=== PATIENT | male | born 1960 | race Hispanic/Latino ===

== ENCOUNTER 2016-07-22 19:26 | Observation (INO) | payer OTHER ==
[2016-07-22 19:33] VITALS: BMI 29.4
--- NOTE | 2016-07-22 19:51 | EDPD ---
HPI Stroke - General Time Seen by Provider: 07/22/16 19:32 Chief Complaint: Weakness/Neurological Deficit Historian: Patient - History of Present Illness Narrative History of Present Illness (Free Text): 07/22/16 19:47 56 year old male presents to the emergency department with right sided facial numbness since 15:05 today. Patient states he was driving when he felt his lips tingling and right sided facial numbness. He states he was at work later trying to pronounce a difficult name when he began to have experience difficulty with his speech. Patient states the speech and lip tingling have resolved. Patient still reports some numbness on the right side of the face. Denies dizziness, headache, neck pain, chest pain, shortness of breath, or other symptoms. Date:: 07/22/16 Time: 15:05 Onset:: Hours rTPA Inclusion/Exclusion - Refusal of Treatment Patient Refused Treatment: No - Inclusion Criteria for Altepase Patient is 18 years or Older: Yes The Clinical Diagnosis of Ischemic Stroke That is Causing a Potentially Disabling Neurological Deficit: No Time of Onset is Well Established to be Less Than 270 Minute Before Treatment Would Begin: No Risk/Benefit Discussed With Patient/Family Member Present: Yes - Exclusion Criteria for Altepase Uncontrolled Hypertension at Time of Treatment (Systolic BP above 185 or Diastolic BP above 110 mmHg): No Active Internal Bleeding: No Known Bleeding Diathesis Including but Not Limited to: Platelets Below 100,000/ mm,PTT Above 40 sec After Heparin Use, Current Use of Oral Anitcoagulant With INR Greater Than 1.7 or PT Greater Than 15 secs: No Evidence of an Intracranial Hemorrhage: No Evidence of Major Acute Infarct With Signs Greater Than 1/3 MCA Territory: No Suspicion of Subarachnoid Hemorrhage on Pretreatment Evaluation Even if CT Head Negative For Hemorrhage: No - Warning to TPA With Conditions Following Conditions Weighed Against Anticipated Benefit: Yes Condition: Stroke Serevity Too Mild, Rapid Improvement Past Medical History - Provider Review Nursing Documentation Reviewed: Yes - Pulmonary Hx Respiratory Disorders: No - Neurological Hx Neurological Disorder: No - HEENT Hx HEENT Disorder: No - Renal Hx Renal Disorder: No - Endocrine/Metabolic Hx Endocrine Disorders: No - Hematological/Oncological Hx Blood Disorders: No - Integumentary Hx Dermatological Disorder: No - Musculoskeletal/Rheumatological Other/Comment: R KNEE , AND R ANKLE INJURY - Gastrointestinal Hx Gastrointestinal Disorders: No - Genitourinary/Gynecological Hx Genitourinary Disorders: No - Psychiatric Hx Psychophysiologic Disorder: No Hx Substance Use: No Family/Social History - Family/Social History Family History: Non-Contributory - Dr. Daniel Nursing documentation reviewed.: Yes Allergies/Home Meds Allergies/Adverse Reactions: Allergies FISH Allergy (Verified 07/22/16 19:31) SWELLING Home Medications: Home Meds Medication Instructions Recorded Confirmed Aspirin [Ecotrin] 81 mg PO DAILY 07/22/16 07/22/16 Simvastatin [Zocor] 20 mg PO DAILY 07/22/16 07/22/16 Review of Systems - Physician Review All systems were reviewed & negative as marked: Yes - Review of Systems Eyes: absent: Vision Changes ENT: absent: Hearing Changes Respiratory: absent: SOB Cardiovascular: absent: Chest Pain Gastrointestinal: absent: Abdominal Pain Genitourinary Male: absent: Dysuria Musculoskeletal: absent: Neck Pain Skin: absent: Rash Neurological: Speech Changes (resolved), Other (Right sided facial numbness). absent: Headache, Dizziness Endocrine: absent: Diaphoresis Hemo/Lymphatic: absent: Easy Bleeding Psychiatric: absent: Depression ED Stroke Physical Exam Vital Signs Reviewed: Yes Vital Signs Temp Pulse Resp BP Pulse Ox 07/22/16 19:35 98.3 F 98 H 17 153/93 H 96 Temperature: Afebrile Blood Pressure: Hypertensive Pulse: Regular Respiratory Rate: Normal Appearance: Positive for: Well-Appearing, Non-Toxic, Comfortable Pain Distress: None Mental Status: Positive for: Alert and Oriented X 3 - Systems Exam Head: Present: Atraumatic, Normocephalic Pupils: Present: PERRL Extroacular Muscles: Present: EOMI Conjunctiva: Present: Normal Mouth: Present: Moist Mucous Membranes Neck: Present: Normal Range of Motion Respiratory/Chest: Present: Clear to Auscultation, Good Air Exchange. No: Respiratory Distress, Accessory Muscle Use Cardiovascular: Present: Regular Rate and Rhythm, Normal S1, S2. No: Murmurs Abdomen: Present: Normal Bowel Sounds. No: Tenderness, Distention, Peritoneal Signs Back: Present: GCS, CN, SP Upper Extremity: Present: Normal Inspection. No: Cyanosis, Edema Lower Extremity: Present: Normal Inspection. No: Edema Neurologic: Present: GCS=15, CN II-XII Intact, Speech Normal, Motor Func Grossly Intact, Normal Sensory Function Skin: Present: Warm, Dry, Normal Color. No: Rashes Lymphatic: Present: OX3, NI, NC Psychiatric: Present: Alert, Oriented x 3, Normal Insight, Normal Concentration Medical Decision Making ED Course and Treatment: Impression: 56 year old male presents to the emergency department with right sided facial numbness since 15:05 today. Differential Diagnosis included but are not limited to: CVA vs TIA Plan: -- CT Head, EKG, Chest X-ray -- Labs -- Reassess and disposition Progress Notes: CT Head Without Intravenous Contrast FINDINGS: Brain: Areas of decreased attenuation noted within the periventricular and subcortical white matter likely related to chronic microangiopathic ischemic changes given the patient's stated age.Streak artifact limits evaluation of the skull base. No evidence of acute intracranial hemorrhage. Correlate clinically. Ventricles: Unremarkable. No ventriculomegaly. Bones/joints: See above. Soft tissues: Small subcutaneous nodule is noted in the left frontal region. Sinuses: Mucosal thickening of the right maxillary sinus. Mastoid air cells: Unremarkable as visualized. No mastoid effusion. IMPRESSION: Streak artifact limits evaluation of the skull base. No evidence of acute intracranial hemorrhage. CT can miss an acute nonhemorrhagic CVA. It should be noted that acute strokes may be initially radiologically occult on CT. If the patient is having persistent stroke like symptomatology, then MRI may be beneficial. Chest x-ray read by me shows no pneumothorax, no pneumonia, no cardiomegaly, no infiltrates. EKG interpreted by me shows NSR at 92 BPM with LVH, nonspecific ST/T wave changes. 07/22/16 20:[address] Loyd Cooney, neurologist, who is aware and agrees with plan. Pt is not a candidate for tPA due to resolution of symptoms. 07/22/16 22:[address] Hidalgo, who is aware and agrees with plan. Accepts pt in to his service. Pt will go to Telemetry observation for TIA. Pt is no acute distress. Discussed results and hospital observation plan with pt , who is aware and agrees with plan. - Critical Care Critical Care Minutes: 30 minutes - RAD Interpretation Radiology Orders: 07/22/16 19:40 HEAD W/O (CODE STROKE) [CT] Stat CHEST PORTABLE [RAD] Stat - Scribe Statement The provider has reviewed the documentation as recorded by the Yadira Melgoza Provider Scribe Attestation: All medical record entries made by the Scribe were at my direction and personally dictated by me. I have reviewed the chart and agree that the record accurately reflects my personal performance of the history, physical exam, medical decision making, and the department course for this patient. I have also personally directed, reviewed, and agree with the discharge instructions and disposition. NIHSS Scale ([place]) Time Performed: 19:45 - How Severe is the Stoke Baseline Level of Consciousness: 0=Alert LOC to Questions: 0=Both comments correct LOC to commands: 0=Obeys both correctly Best Gaze: 0=Normal Visual: 0=No visual loss Facial: 0=Normal Motor Arm - Left: 0=No drift Motor Arm - Right: 0=No drift Motor Leg - Left: 0=No drift Motor Leg - Right: 0=No drift Limb Ataxia: 0=Absent Sensory: 1=Mild to moderate loss Best Language: 0=No aphasia Dysarthia: 0=Normal articulation Extinction & Inattention (Neglect): 0=Normal, no object Score: 1 Risk Level: Minor Stroke Risk Disposition/Present on Arrival - Present on Arrival Any Indicators Present on Arrival: No History of DVT/PE: No History of Uncontrolled Diabetes: No Urinary Catheter: No History of Decub. Ulcer: No History Surgical Site Infection Following: None - Disposition Have Diagnosis and Disposition been Completed?: Yes Diagnosis: Transient cerebral ischemia Disposition: HOSPITALIZED Disposition Time: 22:50 Condition: GOOD
[2016-07-22 20:07] LABS: ADD MANUAL DIFF? NO
[2016-07-22 20:09] LABS: BASO # 0.03 K/mm3 (0.0-2.0); BASO % 0.3 % (0.0-3.0); EOS # 0.2 (0.0-0.7); EOS % 2.3 % (1.5-5.0); GRAN # 6.62 (1.4-6.5); GRAN % 66.7 % (50.0-68.0); HEMATOCRIT 41.7 % (42.0-52.0); LYMPH # 2.1 (1.2-3.4); LYMPH % 20.9 % (22.0-35.0); MEAN CELL VOLUME 85.8 fL (80.0-105.0); MEAN CORPUSCULAR HEMOGLOBIN 29.8 pg (25.0-35.0); MEAN CORPUSCULAR HGB CONC 34.8 g/dl (31.0-37.0); MEAN PLATELET VOLUME 10.3 fl (7.0-11.0); MONO % 9.8 % (1.0-6.0); PLATELET COUNT 231 10^3/uL (120.0-450.0); RED CELL DISTRIBUTION WIDTH 13.9 % (11.5-14.5); WHITE BLOOD COUNT 9.9 10^3/ul (4.5-11.0)
[2016-07-22 20:20] LABS: ALB/GLOB RATIO 1.4 (1.1-1.8); ALKALINE PHOSPHATASE 49 U/L (38-133); ALT/SGPT 44 U/L (7-56); AST/SGOT 36 U/L (15-59); BILIRUBIN,TOTAL 1.2 mg/dL (0.2-1.3); BLOOD UREA NITROGEN 22 mg/dL (7-21); CALCIUM 9.8 mg/dL (8.4-10.5); CARBON DIOXIDE 25 mmol/L (21-33); CHLORIDE 102 mmol/L (98-107); CHOLESTEROL 193 mg/dL (130-200); GFR AFRICAN-AMERICAN > 60; GLUCOSE,RANDOM 96 mg/dL (70-110); POTASSIUM 3.8 mmol/L (3.6-5.0); SODIUM 139 mmol/L (132-148); TOTAL PROTEIN 7.3 g/dL (5.8-8.3)
[2016-07-22 20:26] LABS: INR 0.99 (0.93-1.08); PARTIAL THROMBOPLASTIN TIME 26.4 Seconds (23.7-30.8)
[2016-07-22 20:32] LABS: TROPONIN I < 0.01 ng/mL
--- NOTE | 2016-07-23 07:49 | RAD ---
HISTORY: code stroke COMPARISON: No prior. FINDINGS: LUNGS: No active pulmonary disease. PLEURA: No significant pleural effusion identified, no pneumothorax apparent. CARDIOVASCULAR: Mild cardiomegaly OSSEOUS STRUCTURES: No significant abnormalities. VISUALIZED UPPER ABDOMEN: Normal. OTHER FINDINGS: EKG leads in place IMPRESSION: No active pulmonary disease. Mild cardiomegaly
--- NOTE | 2016-07-23 09:21 | HP ---
I saw him this morning in his room on telemetry. He has an interesting history. 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 He had some chicken at [employer]. He tried to sleep in the car, went back to work. When he got to the point where he could not remember the name of his boss, he ended up going to the Emergency Room. He saw I think a doctor earlier, but the numbness in his face persisted. He had spoken to his brot her, who is a surgeon in [place], who thought it was a TIA or developing stroke. He came to the [facility] Room. They did a stroke protocol I understand. He had a CAT scan, which is pending. At this time, the face is all resolved. He is feeling better. When he came in, his blood pressure was 185/1 10. He never had that before. PAST MEDICAL HISTORY: Right knee and right ankle injury. ALLERGIES: FISH. He takes a baby aspirin and Zocor. He calls it preventative and did not have high cholesterol he tel ls me. He has never had hypertension. This is the highest it has ever been. He had no vision miranda es, no hearing changes. He had right lip tingling and right face numbness. No shortness of breath, no chest pain, no abdominal pain, no problems urinating, no skin rashes. His speech was also changed from the right-sided facial numbness. He felt his speech could not talk correctly and he could not remember a name, but it resolved. No sweating, no easy bleeding. PHYSICAL EXAMINATION: VITAL SIGNS: He has a 98.3 temp, 98 pulse, 153/93 blood pressure, also 168/110 blood pressure, 96% O 2 sat. HEENT: His head is atraumatic, normocephalic at this time. His extraocular muscles are intact. Pup ils equally reactive to light. Mucous membranes are moist. GENERAL: He is well-appearing, nontoxic, comfortable. He is alert and oriented x 3 at this time. H e feels everything has resolved. NECK: Supple. HEART: Regular rate. LUNGS: Have decreased breath sounds, but clear to auscultation, good exchange. ABDOMEN: Soft, nontender, positive bowel sounds. EXTREMITIES: Have no edema. NEUROLOGIC: GCS is 15. Cranial nerves II-XII grossly intact. He can smile equally right now. Tong ue is midline. SKIN: Warm and dry. PSYCHIATRIC: He is alert and oriented x 3. LYMPHATIC: Thyroid midline. No palpable lymphadenopathy. He comes in with transient ischemic attack, rule out stroke. He had a CAT scan of the head and chest x-ray, which are pending. He had a 139 sodium, potassium 3.8, BUN 22, creatinine 1.3, GFR is 57, sugar is 96, calcium is 9.8, t otal bili is 1.2, AST is 36, ALT is 44, alkaline phosphatase 49. Troponin is less than 0.01. Total protein 7.3, albumin is 4.2, globulin is 3.1. Cholesterol is 193. He is on cholesterol medications. HDL is 38. INR is 0.99. White count is 9.9, hemoglobin 14.5, hematocrit 41.7, platelets of 231. He has a consult for neurology and a consult for cardiology. He has an MRI ordered this morning and we will order carotid Dopplers. I have put him on Norvasc 5 mg for the blood pressure. He is on a f ull aspirin right now. I am hoping since everything has resolved, he will be able to be discharged t his afternoon and hopefully he will be considered a transient ischemic attack with hypertension. We are waiting for neuro and cardio to see. Des Hidalgo DO cc: [id number] TT: 07/23/2016 09:20:50 en
--- NOTE | 2016-07-23 10:13 | CT ---
PROCEDURE: CT HEAD WITHOUT CONTRAST. HISTORY: Code Stroke COMPARISON: None available. TECHNIQUE: Axial computed tomography images were obtained through the head/brain without intravenous contrast. Radiation dose: Total exam DLP = 834 mGy-cm. This CT exam was performed using one or more of the following dose reduction techniques: Automated exposure control, adjustment of the mA and/or kV according to patient size, and/or use of iterative reconstruction technique. FINDINGS: HEMORRHAGE: No intracranial hemorrhage. BRAIN: No mass effect or edema. No atrophy or chronic microvascular ischemic changes. VENTRICLES: Unremarkable. No hydrocephalus. CALVARIUM: Unremarkable. PARANASAL SINUSES: Unremarkable as visualized. No significant inflammatory changes. MASTOID AIR CELLS: Unremarkable as visualized. No inflammatory changes. OTHER FINDINGS: The report concurs with the preliminary [facility] report IMPRESSION: No acute findings
--- NOTE | 2016-07-23 12:24 | CON ---
DATE: 07/23/2016 CHIEF COMPLAINT: Right-sided facial numbness and right-sided lip tingling. HISTORY OF PRESENT ILLNESS: This is a 56-year-old man with history of right knee and right ankle inj ury who present to the hospital because he was dealing with right-sided lip tingling and right-sided facial numbness while driving. He went over and ate something because he had not eaten for 18 hours and thought it would help him. He ate some chicken at [employer]. He tried to sleep in the car. When he went back to work, he got to a point where he could not remember the name of his boss and had cat e difficulty with getting out his words. He said that he had numbness of the right side of face and lip tingling. He had an elevated systolic and diastolic blood pressures in the ER of 180/110; current ly it is 155/98. He has elevated triglycerides of 336 and total cholesterol of 193. Currently, his neuro exam is nonfocal. He denies any further symptoms. PAST MEDICAL HISTORY: History of right knee and right ankle injury. ALLERGIES: FISH. HOME MEDICATIONS: He takes baby aspirin and Zocor. FAMILY HISTORY: Noncontributory. SOCIAL HISTORY: No illicit drug use, smoking, or ETOH abuse. REVIEW OF SYSTEMS: A 14-point review of systems is negative except for the HPI. PHYSICAL EXAMINATION: VITAL SIGNS: Temperature 98, pulse rate 72, blood pressure 130/88, respiratory rate of 18, oxygen 98 % via room air. GENERAL: The patient is sitting up in bed in no acute distress. HEENT: Atraumatic, normocephalic. PERRLA. Extraocular muscles intact. NECK: Supple, no JVD, no adenopathy noted. LUNGS: Clear to auscultation. No adventitious sounds. HEART: S1, S2, normal rate and rhythm. No murmurs, rubs, or gallops. ABDOMEN: Soft, nontender, nondistended. Bowel sounds are present. EXTREMITIES: No clubbing, no cyanosis. Peripheral pulses 2+ felt bilaterally. NEUROLOGIC: The patient is alert, oriented to person, place, month and year. Speech is fluent witho ut any errors. Cranial nerves II through XII are intact. MOTOR: Moves all extremities equally. Toes downgoing bilaterally. SENSORY: Light touch, pinprick, proprioception, vibration intact. DTRs are 2+ throughout. COORDINATION: [id number] intact. GAIT: Deferred for now. LABORATORIES: Sodium is 139, potassium 3.8, chloride 102, carbon dioxide 25, BUN of 22, creatinine 1 .2, random glucose of 99. Triglycerides 336, LDL 112, cholesterol of 193. ASSESSMENT AND PLAN: This is a 56-year-old man with no significant past medical history except for b orderline hypertensive found who came in because he had some right-sided lip tingling and right-sided facial numbness which was transient with difficulty getting out his words. His symptoms have resolv ed. He had elevated systolic and diastolic blood pressure in the ER of 185/110; currently is stable. His neurologic exam is nonfocal. His symptoms are likely secondary to hypertensive urgency superim posed on underlying possible transient ischemic attack. At this time, recommend: 1. MRI of the brain since he had elevated systolic and diastolic blood pressures to evaluate for an acute infarct. 2. Aspirin 81 mg daily and continue with Zocor for his hyperlipidemia. 3. He should be on Norvasc 5 mg p.o. daily for hypertension. 4. Will recommend to continue with low fat, low salt diet as an outpatient. 5. If the MRI of the brain is negative for an acute infarct, the patient can be discharged home. 6. At this time, continue with current present medical management. Thank you for this consult. Jemal Cooney MD cc: [phone] TT: 07/23/2016 12:24:33 Confirmation # [id number] Dictation # [id number]
--- NOTE | 2016-07-23 12:51 | CON ---
DATE: 07/23/2016 HISTORY OF PRESENT ILLNESS: The patient is a 56-year-old male who works at [employer], who devel oped transient right-sided facial weakness as well as numbness. This apparently affected his speech. These symptoms have since resolved. PAST MEDICAL HISTORY: Notable for history of hypertension, as well as hypercholesterolemia in which he is on simvastatin. No previous cardiac history. Negative diabetes mellitus. No previous CVA. No previous coronary dis ease. SOCIAL HISTORY: Does not smoke. ALLERGIES: THE PATIENT IS ALLERGIC TO FISH. REVIEW OF SYSTEMS: A 14-point review of systems was reviewed in detail. No chest pain, no shortness of breath, no cardiac symptomatology. The patient's facial weakness and numbness is now back to [facility]. PHYSICAL EXAMINATION: VITAL SIGNS: Blood pressure is 130/88, the heart rate is in the 70s, normal sinus rhythm. NECK: Negative JVD. LUNGS: Without rales. Negative carotid bruits. HEART: Revealed S1, S2 without murmurs or gallops. EXTREMITIES: Without edema. EKG is normal sinus rhythm and within normal limits. Hemoglobin is 14.5. Triglycerides 336. Troponin is negative x 1. IMPRESSION: 1. Probable transient ischemic attack. 2. Hypercholesterolemia. 3. Hypertension. 4. No cardiac arrhythmias noted. Given these findings, we will monitor on telemetry for the next 24 hours to rule out significant arrh ythmias. Echocardiogram has been ordered. Carotid ultrasound results are pending. Lul Pereira MD cc: [id number] TT: 07/23/2016 12:50:56 Confirmation # [id number] Dictation # [id number] sn
--- NOTE | 2016-07-23 15:06 | CARD ---
APPROVED REPORT EXAM: Two-dimensional and M-mode echocardiogram with Doppler and color Doppler. INDICATION CVA/TIA 2D DIMENSIONS Left Atrium (2D)4.9 (1.6-4.0cm)IVSd1.1 (0.7-1.1cm) LVDd5.7 (3.9-5.9cm)PWd1.2 (0.7-1.1cm) LVDs4.5 (2.5-4.0cm)FS (%) 21.9 % LVEF (%)43.7 (>50%) M-Mode DIMENSIONS Aortic Root4.30 (2.2-3.7cm)Aortic Cusp Exc.2.20 (1.5-2.0cm) Aortic Valve AoV Peak Ctqmmgfm718.0cm/Cecilia Peak GR.5mmHgAI P 1/2 [id number] Mitral Valve MV E Mgzqjoss07.5cm/sMV A Coixdmwy57.5cm/sE/A ratio0.6 TDI Lateral E' Peak V5.65cm/sMedial E' Peak V5.65cm/sE/Lateral E'9.8 E/Medial E'9.8 Pulmonary Valve PV Peak Ycbmhquc99.1cm/sPV Peak Grad.1mmHg Tricuspid Valve TR Peak Fshjmyvx550zl/sRAP [id number] Peak Gr.20mmHg [id number] LEFT VENTRICLE The left ventricle is normal size. There is normal left ventricular wall thickness. The systolic function is mildly to moderately impaired. There is global hypokinesis of the left ventricle. Transmitral Doppler flow pattern is Grade I-abnormal relaxation pattern. RIGHT VENTRICLE The right ventricle is normal size. There is normal right ventricular wall thickness. The right ventricular systolic function is normal. ATRIA The left atrium is moderately dilated. The right atrium size is normal. AORTIC VALVE The aortic valve is not well visualized. There is mild to moderate aortic regurgitation. MITRAL VALVE Mitral regurgitation is moderate. The mitral regurgitant jet is eccentrically directed. TRICUSPID VALVE There is no pulmonary hypertension. GREAT VESSELS The aortic root displays mild sclerocalcific changes of the aortic root. PERICARDIAL EFFUSION There is no pericardial effusion. <Conclusion> The left ventricle is normal size. There is normal left ventricular wall thickness. The systolic function is mildly to moderately impaired. There is global hypokinesis of the left ventricle. Transmitral Doppler flow pattern is Grade I-abnormal relaxation pattern. There is mild to moderate aortic regurgitation. Mitral regurgitation is moderate.
--- NOTE | 2016-07-23 16:51 | CARD ---
APPROVED REPORT EKG Measurement Heart [id number] <Conclusion> Normal sinus rhythm Moderate voltage criteria for LVH, may be normal variant Borderline ECG
--- NOTE | 2016-07-23 18:29 | US ---
PROCEDURE: Bilateral carotid artery duplex ultrasound HISTORY: Carotid stenosis TIA PHYSICIAN(S): Lul Abbott MD. TECHNIQUE: Duplex sonography and color-flow Doppler were used to evaluate the carotid bifurcations and limited segments of the vertebral arteries bilaterally. FINDINGS: There is mild smooth heterogeneous plaque noted at the carotid bifurcations bilaterally. The peak systolic velocity in the proximal right internal carotid artery is 64 cm/sec. This corresponds to a 20 to 39% proximal right ICA stenosis. Normal systolic velocities are noted in the proximal right external carotid artery. There is antegrade flow in the right vertebral artery. The peak systolic velocity in the proximal left internal carotid artery is 71 cm/sec. This corresponds to a 20 to 39% proximal left ICA stenosis. Normal systolic velocities are noted in the proximal left external carotid artery. There is antegrade flow in the left vertebral artery. IMPRESSION: 1. Bilateral 20-39% proximal ICA stenoses. 2. Antegrade flow in both vertebral arteries.
[2016-07-24 06:26] VITALS: O2SAT 94
[2016-07-24 06:55] LABS: HEMATOCRIT 42.9 % (42.0-52.0); MEAN CELL VOLUME 85.3 fL (80.0-105.0); MEAN CORPUSCULAR HEMOGLOBIN 29.6 pg (25.0-35.0); MEAN CORPUSCULAR HGB CONC 34.7 g/dl (31.0-37.0); MEAN PLATELET VOLUME 10.1 fl (7.0-11.0); RED CELL DISTRIBUTION WIDTH 13.8 % (11.5-14.5); WHITE BLOOD COUNT 9.3 10^3/ul (4.5-11.0)
[2016-07-24 07:16] LABS: ALB/GLOB RATIO 1.3 (1.1-1.8); ALKALINE PHOSPHATASE 51 U/L (38-133); ALT/SGPT 43 U/L (7-56); AST/SGOT 32 U/L (15-59); BILIRUBIN,TOTAL 1.4 mg/dL (0.2-1.3); BLOOD UREA NITROGEN 17 mg/dL (7-21); CARBON DIOXIDE 27 mmol/L (21-33); CHLORIDE 103 mmol/L (98-107); GFR AFRICAN-AMERICAN > 60; GLUCOSE,RANDOM 98 mg/dL (70-110); POTASSIUM 3.8 mmol/L (3.6-5.0); SODIUM 138 mmol/L (132-148)
--- NOTE | 2016-07-24 10:40 | DS ---
I saw him resting in bed. He has finally gone for his MRI which was delayed 24 hours. He is still an observation status. I believe he is here with a TIA; I am hoping the MRI of the head is normal. He is currently on aspirin and Norvasc. Those are the 2 medications I will be discharging him on if the tests are normal. PHYSICAL EXAMINATION: VITAL SIGNS: 98.2 temp, 75 pulse, 132/89 blood pressure, 94% O2 sat on room air. HEENT: Head is atraumatic, normocephalic. He smile is fine. He sticks out his tongue in the midline. He has no more symptoms of numbness or tingling in the face. HEART: Regular rate. LUNGS: Clear to auscultation. ABDOMEN: Soft. EXTREMITIES: No edema. He is walking well. LABORATORY: He has a 138 sodium, potassium of 3.8, BUN 17, creatinine 1, GFR is greater than 60, sugar is 98, calcium is 9, total bili is 1.4. AST is 32, ALT is 43, alk phos 51, total protein 7. White count is 9.3, hemoglobin 14.9, platelets are 218. He is being seen by cardio and neurology. His carotids are 39%. This is most probably a TIA, high cholesterol, hypertension; that is what we are dealing here. He is going to be discharged if the MRI is negative on his regular medications which are aspirin, simvastatin, I am adding amlodipine. Awaiting MRI results. Des Hidalgo DO cc: [id number] TT: 07/24/2016 10:39:41 an MTDD
--- NOTE | 2016-07-24 11:15 | PN ---
DATE: 07/24/2016 HISTORY: The patient is asymptomatic in bed. No shortness of breath, no chest pain. PHYSICAL EXAMINATION: VITAL SIGNS: Blood pressure 137/91, heart rate is in the 80s. NECK: Negative JVD. LUNGS: Without rales. HEART: Reveals S1, S2. EXTREMITIES: Without edema. LABORATORIES: Hemoglobin is 14.9. BUN and creatinine are unremarkable. Echocardiogram reveals an ejection fraction of 43%. There is mild to moderate aortic regurgitation a nd mitral regurgitation. Carotid ultrasound revealed no critical carotid stenoses. IMPRESSION: 1. Transient ischemic attack. 2. Hypercholesterolemia. 3. Hypertension. 4. Cardiomyopathy. 5. Mitral regurgitation 6. Aortic insufficiency. I have discussed his echo findings with the patient in detail. The next step would be to rule out co ronary artery disease. I have discussed with the patient and he is agreeable to come back for an out patient stress test next week. Lul Pereira MD cc: [id number] TT: 07/24/2016 11:14:51 Confirmation # [id number] Dictation # [id number] mn
--- NOTE | 2016-07-24 12:07 | MRI ---
PROCEDURE: MRI BRAIN WITHOUT CONTRAST HISTORY: tia?? COMPARISON: None. TECHNIQUE: Multiplanar, multisequence MR images of the brain were obtained without intravenous contrast enhancement. FINDINGS: HEMORRHAGE: None DWI: No evidence of an acute or early subacute infarction. BRAIN PARENCHYMA: No mass effect or edema. No atrophy or chronic microvascular ischemic changes. VENTRICLES: Unremarkable. No hydrocephalus. CRANIUM: Unremarkable. ORBITS: Grossly unremarkable. PARANASAL SINUSES/MASTOIDS: Clear VASCULAR SYSTEM: Skull base flow voids intact. OTHER FINDINGS: None. IMPRESSION: Unremarkable non contrast enhanced MRI of the brain.
[2016-07-24 12:35] VITALS: BP 134/89; PULSE 83; RESP 20; TEMP 97.7
== END 2016-07-24 14:07 | disposition home or self-care (01) ==
LOC: ED 19:26 → ERH 22:54 → 2RNO 07-23 01:33
PROVIDERS: ADMIT Family Medicine; ATTEND Family Medicine
DX: I10 Essential (primary) hypertension (principal); R20.0 Anesthesia of skin; E78.00 Pure hypercholesterolemia, unspecified; E78.1 Pure hyperglyceridemia; I42.9 Cardiomyopathy, unspecified; I08.0 Rheumatic disorders of both mitral and aortic valves
CPT/HCPCS: 36415; 70450; 70551; 71010; 80053; 80061; 82948; 83036; 84484; 85025; 85027; 85610; 85730; 86850; 86900; 93005; 93306; 93880; 99285; G0378